=== PATIENT | female | born 1960 | race Caucasian/White ===

== ENCOUNTER 2023-06-17 10:57 | Outpatient (REF) | payer OTHER, SELFPAY ==
[2023-06-17 11:18] LABS: Basophils Absolute Auto 0.1 X10*3/uL (0.0-0.2); Basophils Percent Auto 0.9 % (0-2); Eosinophils Absolute Auto 0.2 X10*3/uL (0.0-0.4); Eosinophils Percent Auto 3.3 % (0-4); Hematocrit 50.9 % (37.0-47.0); Hemoglobin 18.1 g/dl (12.0-16.0); Imm Gran Abs Auto 0.03 X10*3/uL (0.00-0.03); Imm Gran Pct Auto 0.4 % (0.0-0.4); Lymphocytes Absolute Auto 1.8 X10*3/uL (1.2-4.9); MANUAL DIFF FLAG NO; Mean Corpuscular HGB Conc 35.6 g/dl (31.0-35.0); Mean Corpuscular Volume 95.5 fL (80.0-98.0); Mean Platelet Volume 8.3 fL (9.4-12.3); Monocytes Absolute Auto 0.8 X10*3/uL (0.1-1.2); Monocytes Percent Auto 11.3 % (2-11); Neutrophils Percent Auto 58.1 % (45-73); Platelet Count 239 X10*3/uL (160-400); Red Blood Count 5.33 X10*6/uL (4.20-5.50); Red Cell Distribution Width 11.9 % (11.0-16.0); White Blood Count 6.9 X10*3/uL (4.8-10.8)
== END 2023-06-17 10:58 | disposition home or self-care (01) ==
LOC: HO.BBR 10:57
PROVIDERS: PCP Family Medicine; Visit Provider Internal Medicine Hematology & Oncology
DX: D75.1 Secondary polycythemia (principal)
CPT/HCPCS: 36415; 85025; 99195

== ENCOUNTER 2023-07-05 09:58 | Outpatient (REF) | payer OTHER, SELFPAY ==
[2023-07-05 10:13] LABS: MANUAL DIFF FLAG NO
[2023-07-05 10:14] LABS: Basophils Percent Auto 0.5 % (0-2); Eosinophils Absolute Auto 0.3 X10*3/uL (0.0-0.4); Eosinophils Percent Auto 4.2 % (0-4); Hematocrit 53.3 % (37.0-47.0); Hemoglobin 18.6 g/dl (12.0-16.0); Imm Gran Abs Auto 0.01 X10*3/uL (0.00-0.03); Imm Gran Pct Auto 0.2 % (0.0-0.4); Lymphocytes Absolute Auto 1.9 X10*3/uL (1.2-4.9); Lymphocytes Percent Auto 31.2 % (20-40); Mean Corpuscular HGB Conc 34.9 g/dl (31.0-35.0); Mean Corpuscular Hemoglobin 33.6 pg (27.0-33.0); Mean Corpuscular Volume 96.2 fL (80.0-98.0); Mean Platelet Volume 8.2 fL (9.4-12.3); Monocytes Absolute Auto 0.7 X10*3/uL (0.1-1.2); Monocytes Percent Auto 11.7 % (2-11); Neutrophils Absolute Auto 3.1 x10*3/uL (2.0-8.3); Neutrophils Percent Auto 52.2 % (45-73); Platelet Count 256 X10*3/uL (160-400); Red Blood Count 5.54 X10*6/uL (4.20-5.50); Red Cell Distribution Width 12.2 % (11.0-16.0)
== END 2023-07-05 09:59 | disposition home or self-care (01) ==
LOC: HO.BBR 09:58
PROVIDERS: PCP Family Medicine; Visit Provider Internal Medicine Hematology & Oncology
DX: D75.1 Secondary polycythemia (principal)
CPT/HCPCS: 36415; 85014; 85018; 85025; 99195

== ENCOUNTER 2023-07-23 09:13 | Outpatient (REF) | payer OTHER, SELFPAY ==
[2023-07-23 09:40] LABS: MANUAL DIFF FLAG NO
[2023-07-23 09:42] LABS: Basophils Absolute Auto 0.1 X10*3/uL (0.0-0.2); Basophils Percent Auto 0.7 % (0-2); Eosinophils Absolute Auto 0.2 X10*3/uL (0.0-0.4); Hematocrit 49.6 % (37.0-47.0); Hemoglobin 17.8 g/dl (12.0-16.0); Imm Gran Abs Auto 0.03 X10*3/uL (0.00-0.03); Imm Gran Pct Auto 0.4 % (0.0-0.4); Lymphocytes Absolute Auto 1.9 X10*3/uL (1.2-4.9); Lymphocytes Percent Auto 27.5 % (20-40); Mean Corpuscular HGB Conc 35.9 g/dl (31.0-35.0); Mean Corpuscular Hemoglobin 34.8 pg (27.0-33.0); Mean Corpuscular Volume 96.9 fL (80.0-98.0); Monocytes Absolute Auto 0.7 X10*3/uL (0.1-1.2); Monocytes Percent Auto 10.6 % (2-11); Neutrophils Percent Auto 57.8 % (45-73); Platelet Count 256 X10*3/uL (160-400); Red Blood Count 5.12 X10*6/uL (4.20-5.50); Red Cell Distribution Width 12.4 % (11.0-16.0)
== END 2023-07-23 09:14 | disposition home or self-care (01) ==
LOC: HO.BBR 09:13
PROVIDERS: PCP Family Medicine; Visit Provider Internal Medicine Hematology & Oncology
DX: D75.1 Secondary polycythemia (principal)
CPT/HCPCS: 36415; 85025; 99195

== ENCOUNTER 2023-08-26 10:06 | Outpatient (REF) | payer OTHER, SELFPAY | END 2023-08-26 10:07 | disposition home or self-care (01) | LOC: HO.BBR 10:06 | PROVIDERS: PCP Family Medicine; Visit Provider Internal Medicine Hematology & Oncology | DX: D75.1 Secondary polycythemia (principal) | CPT/HCPCS: 85014; 85018; 99195 ==

== ENCOUNTER 2023-09-30 10:04 | Outpatient (REF) | payer OTHER, SELFPAY | END 2023-09-30 10:05 | disposition home or self-care (01) | LOC: HO.BBR 10:04 | PROVIDERS: PCP Family Medicine; Visit Provider Internal Medicine Hematology & Oncology | DX: D75.1 Secondary polycythemia (principal) | CPT/HCPCS: 85018; 99195 ==

== ENCOUNTER 2023-11-01 09:56 | Outpatient (REF) | payer OTHER, SELFPAY ==
[2023-11-01 10:14] LABS: MANUAL DIFF FLAG NO
[2023-11-01 10:21] LABS: Basophils Absolute Auto 0.1 X10*3/uL (0.0-0.2); Eosinophils Absolute Auto 0.2 X10*3/uL (0.0-0.4); Eosinophils Percent Auto 2.6 % (0-4); Hematocrit 48.9 % (37.0-47.0); Hemoglobin 17.4 g/dl (12.0-16.0); Imm Gran Abs Auto 0.01 X10*3/uL (0.00-0.03); Imm Gran Pct Auto 0.2 % (0.0-0.4); Lymphocytes Absolute Auto 1.6 X10*3/uL (1.2-4.9); Lymphocytes Percent Auto 27.6 % (20-40); Mean Corpuscular HGB Conc 35.6 g/dl (31.0-35.0); Mean Corpuscular Hemoglobin 33.2 pg (27.0-33.0); Mean Corpuscular Volume 93.3 fL (80.0-98.0); Mean Platelet Volume 8.3 fL (9.4-12.3); Monocytes Absolute Auto 0.9 X10*3/uL (0.1-1.2); Monocytes Percent Auto 14.6 % (2-11); Neutrophils Absolute Auto 3.2 x10*3/uL (2.0-8.3); Platelet Count 245 X10*3/uL (160-400); Red Blood Count 5.24 X10*6/uL (4.20-5.50); Red Cell Distribution Width 12.1 % (11.0-16.0); White Blood Count 5.9 X10*3/uL (4.8-10.8)
== END 2023-11-01 09:57 | disposition home or self-care (01) ==
LOC: HO.BBR 09:56
PROVIDERS: PCP Family Medicine; Visit Provider Internal Medicine Hematology & Oncology
DX: D75.1 Secondary polycythemia (principal)
CPT/HCPCS: 36415; 85018; 85025; 99195

== ENCOUNTER 2023-12-06 08:58 | Outpatient (REF) | payer OTHER, SELFPAY | END 2023-12-06 08:59 | disposition home or self-care (01) | LOC: HO.BBR 08:58 | PROVIDERS: PCP Family Medicine; Visit Provider Internal Medicine Hematology & Oncology | DX: D75.1 Secondary polycythemia (principal) | CPT/HCPCS: 85014; 85018; 99195 ==

== ENCOUNTER 2024-01-10 09:03 | Outpatient (REF) | payer OTHER, SELFPAY | END 2024-01-10 09:04 | disposition home or self-care (01) | LOC: HO.BBR 09:03 | PROVIDERS: PCP Family Medicine; Visit Provider Internal Medicine Hematology & Oncology | DX: D75.1 Secondary polycythemia (principal) | CPT/HCPCS: 85014; 85018; 99195 ==

== ENCOUNTER 2024-02-10 09:04 | Outpatient (REF) | payer OTHER, SELFPAY | END 2024-02-10 09:05 | disposition home or self-care (01) | LOC: HO.BBR 09:04 | PROVIDERS: PCP Family Medicine; Visit Provider Internal Medicine Hematology & Oncology | DX: D75.1 Secondary polycythemia (principal) | CPT/HCPCS: 85018; 99195 ==

== ENCOUNTER 2024-03-23 10:02 | Outpatient (REF) | payer OTHER, SELFPAY | END 2024-03-23 10:03 | disposition home or self-care (01) | LOC: HO.BBR 10:02 | PROVIDERS: PCP Family Medicine; Visit Provider Internal Medicine Hematology & Oncology | DX: D75.1 Secondary polycythemia (principal) | CPT/HCPCS: 85018; 99195 ==

== ENCOUNTER 2024-04-24 08:58 | Outpatient (REF) | payer OTHER, SELFPAY ==
--- OUTSIDE RECORDS SUMMARY | 2024-04-24 09:17 | XMS_ITS | Data Portability ---
Author Organization [facility] Brayan Conrad, [facility] Address [address] [place] [address] Care Team Providers Care Port Crane Operator Name Role Phone EMILIANO MARCANO Primary Care Provider EMILIANO MARCANO Referring Provider Assessment Encounter Date Assessment Date Assessment LastModified by Organization Details LastModified Time 06/07/2017 06/07/2017 I have prescribe d a course of fluconazole as well as nystatin swish and swallow. she will discuss temporarily stopping the Advair with her primary care physician. She will follow up in 2 weeks for reevaluation, sooner if needed. Not available 06/07/2017 14:42:31 06/13/2017 06/13/2017 fungal laryngiti s, improved. Continue fluconazole, nystatin for total 2 week course. She will f/u 10 days, sooner prn Not available 06/14/2017 12:56:29 06/28/2017 06/28/2017 one more week of fluconazole. If remaining lesion does not completely resolve biopsy may be warranted. astepro in addition to flonase for allergic rhinitis. f/u 2 - 3 weeks, sooner prn. May also be interested in cosmetic botox at that time. Not available 06/28/2017 17:23:19 07/15/2017 07/15/2017 fungal laryngiti s improved, still with plaque/leukoplakia of right true cord. + tobacco user, professional schwartz. we have discussed options including microlaryngoscopy with biopsy versus laryngology consult; she would like to proceed with layngology consult. She is welcome to f/u prn. Not available 07/16/2017 09:05:37 08/09/2017 08/09/2017 Will f/u with Dr Canas as scheduled for further evaluation. She is welcome to f/u with me prn. Not available 08/09/2017 10:29:28 Plan of Treatment Reminders Order Date Submit Date Provider Last Modified By Organization Details Last Modified Time Details Appointments None recorded. Lab None recorded. Referral None recorded. Procedures None recorded. Surgeries None recorded. Imaging None recorded. Medication Orders nystatin 100,000 unit/mL oral suspension 2017 018 INTERFACE [facility] #1531, [address] [place], [address], 8 14:44:16 fluconazol e 100 mg tablet 2017 018 INTERFACE [facility] #1531, [address] [place], [address], 8 14:44:16 fluconazol e 100 mg tablet 2017 018 INTERFACE [facility] #1531, [address] [place], [address], 8 13:32:18 nystatin 100,000 unit/mL oral suspension 2017 018 INTERFACE [facility] #1531, [address] [place], [address], 8 13:32:17 fluconazol e 100 mg tablet 2017 018 INTERFACE [facility] #1531, [address] [place], [address], 8 10:13:46 Astepro 205.5 mcg (0.15 %) nasal spray 2017 018 INTERFACE [facility] #1531, [address] [place], [address], 8 10:03:01 Patient TargetsNo targets recorded. Patient InstructionsNo instructions recorded. Reason for Referral None Reported. Problems Name Problem SNOMED Code Status Onset Date Resolution Date Notes Provider Name and Address Organization Details Recorded Time Chronic fungal laryngitis 558530663 Active 2017 Brea Ugalde MD [address] [place] [address], [place], [address], [facility] 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 8 09:04:47 Problem Notes None recorded. Procedures Surgical History Date Name Laterality Status Provider Name and Address Organization Details Recorded Time 8 Videostrobe 1 completed Brea Ugalde MD [address] [place] [address], [place], [address], [facility] 08/09/2017 10:28:21 8 Videostrobe 1 completed Brea Ugalde MD [address] [place] [address], [place], [address], [facility] 07/15/2017 13:55:39 8 Videostrobe 1 completed Brea Ugalde MD [address] [place] [address], [place], [address], [facility] 06/28/2017 10:12:22 8 Videostrobe 1 completed Brea Ugalde MD [address] [place] [address], [place], [address], [facility] 06/13/2017 13:33:29 8 Exam of Ear Under Microscopy - Cerumen Removal completed Brea Ugalde MD [address] [place] [address], [place], [address], [facility] 06/07/2017 14:40:34 8 Videostrobe 1 meredith Ugalde MD [address] [place] [address], [place], [address], [facility] 06/07/2017 14:41:43 Imaging Results None recorded. Procedure Notes None recorded. Medical Equipment None Reported. Allergies No known drug allergies Medications Name Sig Start Date Stop Date Status Note LastModified by Organization Details LastModified Time fluconazole 100 mg tablet Take 1 tablet every day by oral route for 7 days. active Not Available Not Available No t Available nystatin 100,000 unit/mL oral suspension 5 cc swish and swallow three times daily x 4 days active Not Available Not Available No t Available prednisone 10 mg tablet active Not Available Not Available No t Available albuterol sulfate 2.5 mg/3 mL (0.083 %) solution for nebulization active Not Available Not Available Not Available cetirizine 10 mg tablet active Not Available Not Available No t Available azithromycin 250 mg tablet active Not Available Not Availabl e Not Available cephalexin 250 mg capsule active Not Available Not Available N ot Available ciprofloxacin 500 mg tablet active Not Available Not Availabl e Not Available levothyroxine 100 mcg tablet active Not Available Not Availab le Not Available oxycodone-aceta minophen 5 mg-325 mg tablet active Not Available Not Available Not Available Advair Diskus 250 mcg-50 mcg/dose powder for inhalation active Not Available Not Availab le Not Available sertraline 25 mg tablet active Not Available Not Available No t Available diazepam 5 mg tablet active Not Available Not Available Not Available Ventolin HFA 90 mcg/actuation aerosol inhaler active Not Available Not Availa ble Not Available bupropion HCl SR 200 mg tablet,12 hr sustained-relea se active Not Available Not Available Not Available rosuvastatin 10 mg tablet active Not Available Not Available No t Available Spiriva with HandiHaler 18 mcg and inhalation capsules active Not Available Not Available Not Available azelastine 205.5 mcg (0.15 %) nasal spray 2 sprays per nostril daily active Not Available Not Available No t Available Flonase Allergy Relief active Not Available Not Available Not Available Vitals Date Recorded Body height Body mass index (BMI) Body weight Provider Name and Address Organization Details Last Updated DateTime 06/07/2017 170.18 cm 23.5 kg/m2 12121.86 g Kaylan Padron [facility] 06/07/2017 14:10:36 Social History Question Answer Notes LastModified by Organizat ion Details LastModified Time Tobacco Smoking Status Current Every Day Smoker RANI Richards [facility] 06/07/2017 14:10:59 Alcohol Use Social Information n ot available 06/07/2017 History Of Noise Exposure No Information not available 06/07/2017 What Was The Date Of Your Most Recent Tobacco Screening? 08/09/2017 Information n ot available 2018 Sex: Unknown Functional Status None recorded. Mental Status None recorded. Family History Relationship Description Onset Age of this Age Resolved Age Notes LastModified by Organization Details LastModified Time Father No current problems or disability Not available 06/07 15:39:54 Mother No current problems or disability Not available 06/07 15:39:54 Medical History Condition Response Diabetes N Heart Disease N Asthma/COPD Y Hypertension N Gynecological HistoryNo gynecological history recorded. Obstetrics History GPAL:G 0 P 0 0 0 0 Past Encounters Encounter ID Performer Location Encounter Start Date Encounter Closed Date Diagnosis/Indication Diagnosis SNOMED-CT Code Diagnosis ICD10 Code Diagnosis Note [id number] Brea Ugalde MD [address] [place] [address] 06/07/2017 13:59:07 06/11/2017 14:50:19 Chronic fungal laryngitis 247565473 J37.0 Impacted c erumen in right ear 0855194721 266134 H61.21 [id number] Brea Ugalde MD [address] [place] [address] 06/13/2017 13:00:30 06/14/2017 15:30:36 Chronic fungal laryngitis 738471529 J37.0 [id number] Brea Ugalde MD [address] [place] [address] 06/28/2017 09:44:59 07/09/2017 16:07:25 Chronic fungal laryngitis 825141839 J37.0 Allergic r hinitis caused by pollen 02299514 J30.1 [id number] Brea Ugalde MD [address] [place] [address] 07/15/2017 13:13:44 07/26/2017 10:44:01 Chronic fungal laryngitis 537984968 J37.0 Leukoplaki a of vocal cords 02835830 J38.3 [id number] Brea Ugalde MD [facility] [address] [place] [address] 08/09/2017 10:15:39 08/15/2017 10:38:48 Chronic fungal laryngitis 215742259 J37.0 Leukoplaki a of vocal cords 48384955 J38.3 Health Concerns Section Related Observation LastModified by Organization Detai ls LastModified Time None Recorded Concern Status LastModified by Organization Details LastModified Time None Recorded Advance Directives Directive None Recorded Payers Encounter Date Sequence Insurance Name Policy Number Policy Roth Covered Member ID Roth Member ID Guarantor Name 06/07/2017 1 [facility] INDEMNITY PLAN - [employer] [id number] 5 Nathalie F Winkler-C arey [id number] Nathalie F Ford-Urban 06/13/2017 1 [facility] [employer]AN - [employer] [id number] 5 Nathalie F Winkler-C arey [id number] Nathalie F Ford-Urban 06/28/2017 1 [facility] [employer]AN - [employer] [id number] 5 Nathalie F Winkler-C arey [id number] Nathalie F Ford-Urban 07/15/2017 1 [facility] [employer]AN - [employer] [id number] 5 Nathalie F Winkler-C arey [id number] Nathalie F Ford-Urban 08/09/2017 1 [facility] [employer]AN - [employer] [id number] 5 Nathalie F Winkler-C arey [id number] Nathalie F Ford-Urban Notes Date Note Type Note Provider Name and Address Organization Details Recorded Time 06/07/2017 text/html Seen in consultation at the request of Dr. Marcano. 56 yo F with Laryngitis x 2 months. Went to urgent care, treated with prednisone and abx, no improvement. Schwartz. Started off with mild sore throat, suspects overuse may have worsened her symptoms. Does report mild allergic rhinitis, recent exacerbation with watery eyes, rhinorrhea. Restarted flonase recently, no change. No pain in throat currently. No difficulty swallowing. Does have asthma, uses advair prn; has been using more recently as the asthma has worsened since she started smoking again. Brea Ugalde MD [address] [facility] [facility] [address] , [place], [address], [facility] 06/07/2017 15:42:10 06/13/2017 text/html Seen 6 days ago with hoarseness, fungal laryngitis. Moved up her f/u appointment and returns today for re-evaluation; No worse, but wants to be better. Started on antifungals 6 days ago. No longer taking advair. 06/07: Seen in consultation at the request of Dr. Marcano. 56 yo F with Laryngitis x 2 months. Went to urgent care, treated with prednisone and abx, no improvement. Schwartz. Started off with mild sore throat, suspects overuse may have worsened her symptoms. Does report mild allergic rhinitis, recent exacerbation with watery eyes, rhinorrhea. Restarted flonase recently, no change. No pain in throat currently. No difficulty swallowing. Does have asthma, uses advair prn; has been using more recently as the asthma has worsened since she started smoking again. Brea Ugalde MD [address] [facility] [facility] [address] , [place], [address], [facility] 06/14/2017 13:01:29 06/28/2017 text/html Now with symptom s of allergic rhinitis, nasal congestion/rhinorr hea. No pain in throat. Singing voice improved. 06/13 Seen 6 days ago with hoarseness, fungal laryngitis. Moved up her f/u appointment and returns today for re-evaluation; No worse, but wants to be better. Started on antifungals 6 days ago. No longer taking advair. 06/07: Seen in consultation at the request of Dr. Marcano. 56 yo F with Laryngitis x 2 months. Went to urgent care, treated with prednisone and abx, no improvement. Schwartz. Started off with mild sore throat, suspects overuse may have worsened her symptoms. Does report mild allergic rhinitis, recent exacerbation with watery eyes, rhinorrhea. Restarted flonase recently, no change. No pain in throat currently. No difficulty swallowing. Does have asthma, uses advair prn; has been using more recently as the asthma has worsened since she started smoking again. Brea Ugalde MD [address] [facility], [place], [address], [facility] 06/28/2017 17:23:44 07/15/2017 text/html Returns today fo r f/u. voice has improved, not quite but almost back to normal. Allergies better controlled on astepro/flonase daily. No throat pain, no dysphagia or odyophagia. does continue to smoke. 06/28: Now with symptoms of allergic rhinitis, nasal congestion/rhinorr hea. No pain in throat. Singing voice improved. 06/13 Seen 6 days ago with hoarseness, fungal laryngitis. Moved up her f/u appointment and returns today for re-evaluation; No worse, but wants to be better. Started on antifungals 6 days ago. No longer taking advair. 06/07: Seen in consultation at the request of Dr. Marcano. 56 yo F with Laryngitis x 2 months. Went to urgent care, treated with prednisone and abx, no improvement. Schwartz. Started off with mild sore throat, suspects overuse may have worsened her symptoms. Does report mild allergic rhinitis, recent exacerbation with watery eyes, rhinorrhea. Restarted flonase recently, no change. No pain in throat currently. No difficulty swallowing. Does have asthma, uses advair prn; has been using more recently as the asthma has worsened since she started smoking again. Brea Ugalde MD [address] [place], [address], [facility] 07/16/2017 09:08:03 08/09/2017 text/html returns today fo r followup. Voice continues to improve. No throat pain, no dysphagia or odynophagia. Does continue to smoke. Scheduled to see Dr. Canas next month. 07/15: Returns today for f/u. voice has improved, not quite but almost back to normal. Allergies better controlled on astepro/flonase daily. No throat pain, no dysphagia or odyophagia. does continue to smoke. 06/28: Now with symptoms of allergic rhinitis, nasal congestion/rhinorr hea. No pain in throat. Singing voice improved. 06/13 Seen 6 days ago with hoarseness, fungal laryngitis. Moved up her f/u appointment and returns today for re-evaluation; No worse, but wants to be better. Started on antifungals 6 days ago. No longer taking advair. 06/07: Seen in consultation at the request of Dr. Marcano. 56 yo F with Laryngitis x 2 months. Went to urgent care, treated with prednisone and abx, no improvement. Schwartz. Started off with mild sore throat, suspects overuse may have worsened her symptoms. Does report mild allergic rhinitis, recent exacerbation with watery eyes, rhinorrhea. Restarted flonase recently, no change. No pain in throat currently. No difficulty swallowing. Does have asthma, uses advair prn; has been using more recently as the asthma has worsened since she started smoking again. Brea Ugalde MD [address] [place] [address], [place], [address], [facility] 08/09/2017 10:30:17 OBGyn Episode No OBEpisode recorded.
== END 2024-04-24 08:59 | disposition home or self-care (01) ==
LOC: HO.BBR 08:58
PROVIDERS: PCP Family Medicine; Visit Provider Internal Medicine Hematology & Oncology
DX: D75.1 Secondary polycythemia (principal)

== ENCOUNTER 2024-05-25 09:09 | Outpatient (REF) | payer OTHER, SELFPAY ==
--- OUTSIDE RECORDS SUMMARY | 2024-05-25 09:43 | XMS_ITS | Data Portability ---
Author Organization [facility] Brayan Conrad, [facility] Address [address] [place] [address] Care Team Providers Care Director Of Customer Service Name Role Phone EMILIANO MARCANO Primary Care [...] evaluation. She is welcome to f/u with prn. Not available 08/09/2017 10:29:28 Plan of Treatment Reminders Order Date Submit Date Provider Last Modified By Organization Details Last Modified Time Details Appointments None recorded. Lab None recorded. Referral None recorded. Procedures None recorded. Surgeries None recorded. Imaging None recorded. Medication Orders fluconazol e 100 mg tablet 2017 018 INTERFACE [facility], [address] [place], [address], 8 10:13:46 Astepro 205.5 mcg (0.15 %) nasal spray 2017 018 INTERFACE [facility] #1531, [address] [place], [address], 8 10:03:01 fluconazol e 100 mg tablet 2017 018 INTERFACE [facility], [address] [place], [address], 8 13:32:18 nystatin 100,000 unit/mL oral suspension 2017 018 INTERFACE [facility] #1531, [address] [place], [address], 8 13:32:17 nystatin 100,000 unit/mL oral suspension 2017 018 INTERFACE [facility], [address] [place], [address], 8 14:44:16 fluconazol e 100 mg tablet 2017 018 INTERFACE [facility], [address] [place], [address], 8 14:44:16 Patient TargetsNo targets recorded. Patient InstructionsNo instructions recorded. Reason for Referral None Reported. Problems Name Problem SNOMED Code Status Onset Date Resolution Date Notes Provider Name and Address Organization Details Recorded Time Chronic fungal laryngitis 365464587 Active 2017 Brea Ugalde MD [address] [place] [address], [place], [address], [facility] 8 13:31:40 Leukoplakia of vocal cords 02475553 Active 2017 Brea Ugalde MD [address] [place] [address], [place], [address], [facility] 8 09:04:47 Problem Notes None recorded. Procedures Surgical History Date Name Laterality Status Provider Name and Address Organization Details Recorded Time 8 Videostrobe 1 completed Brea Ugalde MD [address] [place] [address], [place], [address], [facility] 08/09/2017 10:28:21 8 Videostrobe 1 completed Brea Ugalde MD [address] [place] [address], [place], [address], [facility] 07/15/2017 13:55:39 8 Videostrobe 1 completed Brea Ugalde MD [address] [place] [address], [place], [address], [facility] 06/28/2017 10:12:22 8 Videostrobe 1 completed Brea Ugalde MD [address] [place] [address], [place], [address], [facility] 06/13/2017 13:33:29 8 Exam of Ear Under Microscopy - Cerumen Removal completed Brea Ugalde MD [address] [place] [address], [place], [address], [facility] 06/07/2017 14:40:34 8 Videostrobe 1 merdeith Ugalde MD [address] [place] [address], [place], [address], [facility] 06/07/2017 14:41:43 Imaging Results [...] Updated DateTime 06/07/2017 170.18 cm 23.5 kg/m2 44679.86 g Kaylan Padron [facility] 06/07/2017 14:10:36 Social History Question Answer Notes LastModified by Organizat ion Details LastModified Time Tobacco Smoking Status Current Every Day Smoker RANI Richards [facility] 06/07/2017 14:10:59 Alcohol Use [...] 15:39:54 Medical History Condition Response Diabetes N Asthma/COPD Y Heart Disease N Hypertension N Gynecological HistoryNo gynecological history recorded. Obstetrics History GPAL:G 0 P 0 0 0 0 Past Encounters Encounter ID Performer Location Encounter Start Date Encounter Closed Date Diagnosis/Indication Diagnosis SNOMED-CT Code Diagnosis ICD10 Code Diagnosis Note [id number] Brea Ugalde MD [address] [place] [address] 06/07/2017 13:59:07 06/11/2017 14:50:19 Chronic fungal laryngitis 081939054 J37.0 Impacted c erumen in right ear 9280041114 927775 H61.21 [id number] Brea Ugalde MD [address] [place] [address] 06/13/2017 13:00:30 06/14/2017 15:30:36 Chronic fungal laryngitis 631582989 J37.0 [id number] rBea Ugalde MD [address] [place] [address] 06/28/2017 09:44:59 07/09/2017 16:07:25 Chronic fungal laryngitis 249337069 J37.0 Allergic r hinitis caused by pollen 22063652 J30.1 [id number] Brea Ugalde MD [address] [place] [address] 07/15/2017 13:13:44 07/26/2017 10:44:01 Chronic fungal laryngitis 222665950 J37.0 Leukoplaki a of vocal cords 24592578 J38.3 [id number] Brea Uaglde MD [facility] [address] [place] [address] 08/09/2017 10:15:39 08/15/2017 10:38:48 Chronic fungal laryngitis 213840874 J37.0 Leukoplaki a of vocal cords 78880911 J38.3 Health Concerns Section Related Observation LastModified by Organization Detai ls LastModified Time None Recorded Concern Status LastModified by Organization Details LastModified Time None Recorded Advance Directives Directive None Recorded Payers Encounter Date Sequence Insurance Name Policy Number Policy Roth Covered Member ID Roth Member ID Guarantor Name 06/07/2017 1 [facility] INDEMNITY PLAN - [employer] [id number] 5 Nathalie F Wilson-C arey [id number] Nathalie F Ford-Urban 06/13/2017 1 [facility] [employer] - [employer] [id number] 5 Nathalie F Wilson-C arey [id number] Nathalie F Ford-Urban 06/28/2017 1 [facility] [employer] - [employer] [id number] 5 Nathalie F Wilson-C arey [id number] Nathalie F Ford-Urban 07/15/2017 1 [facility] [employer] - [employer] [id number] 5 Nathalie F Wilson-C arey [id number] Nathalie F Ford-Urban 08/09/2017 1 [facility] [employer] - [employer] [id number] 5 Nathalie F Wilson-C arey [id number] Nathalie F Ford-Urban Notes Date Note Type [...] started smoking again. Brea Ugalde MD [address] [facility] [address] , [place], [address], [facility] 06/07/2017 15:42:10 06/13/2017 text/html [...] started smoking again. Brea Ugalde MD [address] [facility] [address] , [place], [address], [facility] 06/14/2017 13:01:29 06/28/2017 text/html [...] started smoking again. Brea Ugalde MD [address] [facility], [place], [address], [facility] 06/28/2017 17:23:44 07/15/2017 text/html [...] started smoking again. Brea Ugalde MD [address] [place], [address], [facility] 07/16/2017 09:08:03 08/09/2017 text/html [...] she started smoking again. Brea Ugalde MD [address] [place] [address], [place], [address], [facility] 08/09/2017 10:30:17 OBGyn Episode No OBEpisode recorded.
== END 2024-05-25 09:10 | disposition home or self-care (01) ==
LOC: HO.BBR 09:09
PROVIDERS: PCP Family Medicine; Visit Provider Internal Medicine Hematology & Oncology
DX: D75.1 Secondary polycythemia (principal)
CPT/HCPCS: 85018; 99195

== ENCOUNTER 2024-06-22 09:00 | Outpatient (REF) | payer OTHER, SELFPAY | END 2024-06-22 09:01 | disposition home or self-care (01) | LOC: HO.BBR 09:00 | PROVIDERS: PCP Family Medicine; Visit Provider Internal Medicine Hematology & Oncology | DX: D75.1 Secondary polycythemia (principal) | CPT/HCPCS: 85014; 85018; 99195 ==

== ENCOUNTER 2024-07-20 10:55 | Outpatient (REF) | payer OTHER, SELFPAY ==
--- OUTSIDE RECORDS SUMMARY | 2024-07-20 12:34 | XMS_ITS | Data Portability ---
Author Organization [facility] Brayan Conrad, [facility] Address [address] [place] [address] Care Team Providers Care Employee Counselor Name Role Phone EMILIANO MARCANO Primary Care [...] tablet 2017 018 [facility]FACE [facility], [address] [place], [address], 8 10:13:46 Astepro 205.5 mcg (0.15 %) nasal spray 2017 018 INTERFACE [facility], [address] [place], [address], 8 10:03:01 fluconazol e 100 mg tablet 2017 018 [facility], [address] [place], [address], 8 13:32:18 nystatin 100,000 unit/mL oral suspension 2017 018 INTERFACE [facility], [address] [place], [address], 8 13:32:17 nystatin 100,000 unit/mL oral suspension 2017 018 [facility], [address] [place], [address], 8 14:44:16 fluconazol e 100 mg tablet 2017 018 [facility], [address] [place], [address], 8 14:44:16 Patient TargetsNo targets recorded. Patient InstructionsNo instructions recorded. Reason for Referral None Reported. Problems Name Problem SNOMED Code Status Onset Date Resolution Date Notes Provider Name and Address Organization Details Recorded Time Chronic fungal laryngitis 638850464 Active 2017 Brea Ugalde MD [address] [place] [address], [place], [address], [facility] 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 8 09:04:47 Problem Notes None recorded. Procedures Surgical History Date Name Laterality Status Provider Name and Address Organization Details Recorded Time 8 Videostrobe 1 completed Brea Ugalde MD [address] [place] [address], [place], [address], [facility] 08/09/2017 10:28:21 8 Videostrobe 1 completed Brea Ugalde MD [address] [place] [address], [place], [address], [facility] 07/15/2017 13:55:39 8 Videostrobe 1 completed Brea Ugalde MD [address] [place] [address], [place], [address], [facility] 06/28/2017 10:12:22 8 Videostrobe 1 completed Brea Ugalde MD [address] [place] [address], [place], [address], [facility] 06/13/2017 13:33:29 8 Exam of Ear Under Microscopy - Cerumen Removal completed Brea Ugalde MD [address] [place] [address], [place], [address], [facility] 06/07/2017 14:40:34 8 Videostrobe 1 meredith Ugalde MD [address] [place] [address], [place], [address], [facility] 06/07/2017 14:41:43 Imaging [...] Updated DateTime 06/07/2017 170.18 cm 23.5 kg/m2 34530.86 g Kaylan Padron [facility] 06/07/2017 14:10:36 Social History Question Answer Notes LastModified by Organizat ion Details LastModified Time Tobacco Smoking Status Current Every Day Smoker RANI Richards [facility] 06/07/2017 14:10:59 Alcohol Use [...] SNOMED-CT Code Diagnosis ICD10 Code Diagnosis Note [id number] Brea Ugalde MD [address] [place] [address] 06/07/2017 13:59:07 06/11/2017 14:50:19 Chronic fungal laryngitis 677409017 J37.0 Impacted c erumen in right ear 1563015972 521656 H61.21 43342 Brea Ugalde MD [address] [place] [address] 06/13/2017 13:00:30 06/14/2017 15:30:36 Chronic fungal laryngitis 840506170 J37.0 72522 Brea Ugalde MD [address] [place] [address] 06/28/2017 09:44:59 07/09/2017 16:07:25 Chronic fungal laryngitis 873880238 J37.0 Allergic r hinitis caused by pollen 48748759 J30.1 48925 Brea Ugalde MD [address] [place] [address] 07/15/2017 13:13:44 07/26/2017 10:44:01 Chronic fungal laryngitis 046147710 J37.0 Leukoplaki a of vocal cords 15181065 J38.3 61687 Brea Ugalde MD [facility] [address] [place] [address] 08/09/2017 10:15:39 08/15/2017 10:38:48 Chronic fungal laryngitis 170870876 J37.0 Leukoplaki a of vocal cords 16256579 J38.3 Health Concerns Section Related Observation LastModified by Organization Detai ls LastModified Time None Recorded Concern Status LastModified by Organization Details LastModified Time None Recorded Advance Directives Directive None Recorded Payers Encounter Date Sequence Insurance Name Policy Number Policy Roth Covered Member ID Roth Member ID Guarantor Name 06/07/2017 1 [facility] INDEMNITY PLAN - [employer] [id number] 5 Nathalie F Boss-C arey [id number] Nathalie F Ford-Urban 06/13/2017 1 [facility] INDEMNITY PLAN - [employer] [id number] 5 Nathalie F Boss-C arey [id number] Nathalie F Ford-Urban 06/28/2017 1 [facility] INDEMNITY PLAN - [employer] [id number] 5 Nathalie F Boss-C arey [id number] Nathalie F Ford-Urban 07/15/2017 1 [facility] INDEMNITY PLAN - [employer] [id number] 5 Nathalie F Boss-C arey [id number] Nathalie F Ford-Urban 08/09/2017 1 [facility] INDEMNITY PLAN - [employer] [id number] 5 Nathalie F Boss-C arey [id number] Nathalie F Ford-Urban Notes Date Note Type [...] started smoking again. Brea Ugalde MD [address] [facility] [address] , [place], [address], [facility] 06/07/2017 15:42:10 06/13/2017 [...] started smoking again. Brea Ugalde MD [address] [facility] [address] , [place], [address], [facility] 06/14/2017 13:01:29 06/28/2017 [...] started smoking again. Brea Ugalde MD [address] [facility], [place], [address], [facility] 06/28/2017 17:23:44 07/15/2017 [...] started smoking again. Brea Ugalde MD [address] [place], [address], [facility] 07/16/2017 09:08:03 08/09/2017 [...] she started smoking again. Brea Ugalde MD [address] [place] [address], [place], [address], [facility] - [facility] 08/09/2017 10:30:17 OBGyn Episode No OBEpisode recorded.
== END 2024-07-20 10:56 | disposition home or self-care (01) ==
LOC: HO.BBR 10:55
PROVIDERS: PCP Family Medicine; Visit Provider Internal Medicine Hematology & Oncology
DX: D75.1 Secondary polycythemia (principal)
CPT/HCPCS: 85018; 99195

== ENCOUNTER 2024-08-17 10:59 | Outpatient (REF) | payer OTHER, SELFPAY ==
--- OUTSIDE RECORDS SUMMARY | 2024-08-17 12:13 | XMS_ITS | Data Portability ---
Author Organization [facility] Brayan Conrad, [facility] Address [address] [place] [address] Care Team Providers Care Construction Estimator Name Role Phone EMILIANO MARCANO Primary Care Provider [phone] EMILIANO MARCANO Referring Provider Assessment Encounter Date [...] tablet 2017 018 [facility], [address] [place], [address], 8 10:13:46 Astepro 205.5 mcg (0.15 %) nasal spray 2017 018 INTERFACE [facility], [address] [place], [address], 8 10:03:01 fluconazol e 100 mg tablet 2017 018 [facility]FACE [facility], [address] [place], [address], 8 13:32:18 nystatin 100,000 unit/mL oral suspension 2017 018 INTERFACE [facility], [address] [place], [address], 8 13:32:17 nystatin 100,000 unit/mL oral suspension 2017 018 [facility], [address] [place], [address], 8 14:44:16 fluconazol e 100 mg tablet 2017 018 [facility], [address] [place], [address], 8 14:44:16 Patient TargetsNo targets recorded. Patient InstructionsNo instructions recorded. Reason for Referral None Reported. Problems Name Problem SNOMED Code Status Onset Date Resolution Date Notes Provider Name and Address Organization Details Recorded Time Chronic fungal laryngitis 093443243 Active 2017 Brea Ugalde MD [address] [place] [address], [place], [address], [facility] 8 13:31:40 Leukoplakia of vocal cords 11591717 Active 2017 Brea Ugalde MD [address] [place] [address], [place], [address], [facility] 8 09:04:47 Problem Notes None recorded. Procedures Surgical History Date Name Laterality Status Provider Name and Address Organization Details Recorded Time 8 Videostrobe 1 completed Brea Ugalde MD [address] [place] [address], [place], [address], [facility] 08/09/2017 10:28:21 8 Videostrobe 1 completed Brea Ugalde MD [address] [place] [address], [place], [address], [facility] 07/15/2017 13:55:39 8 Videostrobe 1 completed Brea Ugalde MD [address] [place] [address], [place], [address], [facility] 06/28/2017 10:12:22 8 Videostrobe 1 completed Brea Ugalde MD [address] [place] [address], [place], [address], [facility] 06/13/2017 13:33:29 8 Exam of Ear Under Microscopy - Cerumen Removal completed Brea Ugalde MD [address] [place] [address], [place], [address], [facility] 06/07/2017 14:40:34 8 Videostrobe 1 meredith Ugalde MD [address] [place] [address], [place], [address], [facility] 06/07/2017 14:41:43 Imaging [...] Updated DateTime 06/07/2017 170.18 cm 23.5 kg/m2 67094.86 g Kaylan Padron [facility] 06/07/2017 14:10:36 Social History Question Answer Notes LastModified by Organizat ion Details LastModified Time Tobacco Smoking Status Current Every Day Smoker RANI Richards [facility] 06/07/2017 14:10:59 Alcohol Use [...] SNOMED-CT Code Diagnosis ICD10 Code Diagnosis Note 48734 Brea Ugalde MD [address] [place] [address] 06/07/2017 13:59:07 06/11/2017 14:50:19 Chronic fungal laryngitis 037626256 J37.0 Impacted c erumen in right ear 0856332950 450843 H61.21 43372 Brea Ugalde MD [address] [place] [address] 06/13/2017 13:00:30 06/14/2017 15:30:36 Chronic fungal laryngitis 496109561 J37.0 11803 Brea Ugalde MD [address] [place] [address] 06/28/2017 09:44:59 07/09/2017 16:07:25 Chronic fungal laryngitis 758437679 J37.0 Allergic r hinitis caused by pollen 13059692 J30.1 09595 Brea Ugalde MD [address] [place] [address] 07/15/2017 13:13:44 07/26/2017 10:44:01 Chronic fungal laryngitis 368022664 J37.0 Leukoplaki a of vocal cords 82701120 J38.3 73813 Brea Ugalde MD [facility] [address] [place] [address] 08/09/2017 10:15:39 08/15/2017 10:38:48 Chronic fungal laryngitis 316509516 J37.0 Leukoplaki a of vocal cords 58036558 J38.3 Health Concerns Section Related Observation LastModified by Organization Detai ls LastModified Time None Recorded Concern Status LastModified by Organization Details LastModified Time None Recorded Advance Directives Directive None Recorded Payers Encounter Date Sequence Insurance Name Policy Number Policy Roth Covered Member ID Roth Member ID Guarantor Name 06/07/2017 1 [facility] INDEMNITY PLAN - UNICARE [id number] 5 Nathalie F Bergen-C arey [id number] Nathalie F Ford-Urban 06/13/2017 1 [facility] IN[employer]MNITY [employer] - [employer] [id number] 5 Nathalie F Bergen-C arey [id number] Nathalie F Ford-Urban 06/28/2017 1 [facility] IN[employer]MNITY [employer]AN - [employer] [id number] 5 Nathalie F Bergen-C arey [id number] Nathalie F Ford-Urban 07/15/2017 1 [facility] IN[employer]MNITY PLAN - [employer] [id number] 5 Nathalie F Bergen-C arey [id number] Nathalie F Ford-Urban 08/09/2017 1 [facility] INDEMNITY PLAN - [employer] [id number] 5 Nathalie F Bergen-C arey [id number] Nathalie F Ford-Urban Notes Date Note Type [...] started smoking again. Brea Ugalde MD [address] [facility] [address] , [place], [address], [facility] 06/07/2017 15:42:10 06/13/2017 [...] started smoking again. Brea Ugalde MD [address] [facility] [address] , [place], [address], [facility] 06/14/2017 13:01:29 06/28/2017 [...] started smoking again. Brea Ugalde MD [address] [facility], [place], [address], [facility] 06/28/2017 17:23:44 07/15/2017 [...] started smoking again. Brea Ugalde MD [address] [place], [address], [facility] 07/16/2017 09:08:03 08/09/2017 [...] she started smoking again. Brea Ugalde MD [address] [place] [address], [place], [address], [facility] 08/09/2017 10:30:17 OBGyn Episode No OBEpisode recorded.
== END 2024-08-17 11:00 | disposition home or self-care (01) ==
LOC: HO.BBR 10:59
PROVIDERS: PCP Family Medicine; Visit Provider Internal Medicine Hematology & Oncology
DX: E83.110 Hereditary hemochromatosis (principal); D75.1 Secondary polycythemia
CPT/HCPCS: 85014; 85018; 99195

== ENCOUNTER 2024-09-14 11:08 | Outpatient (REF) | payer OTHER, SELFPAY ==
--- OUTSIDE RECORDS SUMMARY | 2024-09-14 12:01 | XMS_ITS | Data Portability ---
Author Organization [facility] Brayan Conrad, [facility] Address [address] [place] [address] Care Team Providers Care Percussion Welding Machine Operator Name Role Phone EMILIANO MARCANO Primary Care Provider EMILIANO MARCANO Referring Provider [phone] Assessment Encounter Date Assessment Date Assessment LastModified [...] She is welcome to f/u with me [email or web address] Not available 08/09/2017 10:29:28 Plan of Treatment Reminders Order Date Submit Date Provider Last Modified By Organization Details Last Modified Time Details Appointments None recorded. Lab None recorded. Referral None recorded. Procedures None recorded. Surgeries None recorded. Imaging None recorded. Medication Orders fluconazol e 100 mg tablet 2017 018 [facility], [address] [place], [address], 8 10:13:46 Astepro 205.5 mcg (0.15 %) nasal spray 2017 018 INTERFACE [facility], [address] [place], [address], 8 10:03:01 fluconazol e 100 mg tablet 2017 018 [facility], [address] [place], [address], 8 13:32:18 nystatin 100,000 unit/mL oral suspension 2017 018 [facility], [address] [place], [address], 8 13:32:17 nystatin 100,000 unit/mL oral suspension 2017 018 [facility], [address] [place], [address], 8 14:44:16 fluconazol e 100 mg tablet 2017 018 [facility], [address] [place], [address], 8 14:44:16 Patient TargetsNo targets recorded. Patient InstructionsNo instructions recorded. Reason for Referral None Reported. Problems Name Problem SNOMED Code Status Onset Date Resolution Date Notes Provider Name and Address Organization Details Recorded Time Chronic fungal laryngitis 813547247 Active 2017 Brea Ugalde MD [address] [place] [address], [place], [address], [facility] 8 13:31:40 Leukoplakia of vocal cords 00368015 Active 2017 Brea Ugalde MD [address] [place] [address], [place], [address], [facility] 8 09:04:47 Problem Notes None recorded. Procedures Surgical History Date Name Laterality Status Provider Name and Address Organization Details Recorded Time 8 Videostrobe 1 completed Brea Ugalde MD [address] [place] [address], [place], [address], [facility] 08/09/2017 10:28:21 8 Videostrobe 1 completed Brea Ugalde MD [address] [place] [address], [place], [address], [facility] 07/15/2017 13:55:39 8 Videostrobe 1 completed Brea Ugalde MD [address] [place] [address], [place], [address], [facility] 06/28/2017 10:12:22 8 Videostrobe 1 completed Brea Ugalde MD [address] [place] [address], [place], [address], [facility] 06/13/2017 13:33:29 8 Exam of Ear Under Microscopy - Cerumen Removal completed Brea Ugalde MD [address] [place] [address], [place], [address], [facility] 06/07/2017 14:40:34 8 Videostrobe 1 meredith Ugalde MD [address] [place] [address], [place], [address], [facility] 06/07/2017 14:41:43 Imaging [...] Updated DateTime 06/07/2017 170.18 cm 23.5 kg/m2 89192.86 g Kaylan Freed [facility] 06/07/2017 14:10:36 Social History Question Answer Notes LastModified by Organizat ion Details LastModified Time Tobacco Smoking Status Current Every Day Smoker Kaylan ma [place] - [facility] 06/07/2017 14:10:59 Alcohol Use [...] SNOMED-CT Code Diagnosis ICD10 Code Diagnosis Note 23712 Brea Ugalde MD [facility] [address] [place] [address] [place] [address] 06/07/2017 13:59:07 06/11/2017 14:50:19 Chronic fungal laryngitis 405622300 J37.0 Impacted c erumen in right ear 7314854274 959067 H61.21 18594 Brea Ugalde MD [facility] [address] [place] [address] [place] [address] 06/13/2017 13:00:30 06/14/2017 15:30:36 Chronic fungal laryngitis 238886430 J37.0 06921 Brea Ugalde MD [facility] [address] [place] [address] [place] [address] 06/28/2017 09:44:59 07/09/2017 16:07:25 Chronic fungal laryngitis 546486827 J37.0 Allergic r hinitis caused by pollen 32929928 J30.1 42982 Brea Ugalde MD [facility] [address] [place] [address] [place] [address] 07/15/2017 13:13:44 07/26/2017 10:44:01 Chronic fungal laryngitis 374417107 J37.0 Leukoplaki a of vocal cords 62100400 J38.3 90322 Brea Ugalde MD [facility] [address] [place] [address] 08/09/2017 10:15:39 08/15/2017 10:38:48 Chronic fungal laryngitis 083449829 J37.0 Leukoplaki a of vocal cords 38279305 J38.3 Health Concerns Section Related Observation LastModified by Organization Detai ls LastModified Time None Recorded Concern Status LastModified by Organization Details LastModified Time None Recorded Advance Directives Directive None Recorded Payers Insurance Date Sequence Insurance Name Policy Number Policy Roth Covered Member ID Roth Member ID Guarantor Name 08/08/2017 1 [facility] INDEMNITY PLAN - [facility] [id number] 5 Nathalie Huggins'Brien-Nura white [id number] Nathalie De Anda Notes Date Note Type Note Provider Name [...] started smoking again. Brea Ugalde MD [address] [facility] [address] , [place], [address], [facility] 06/07/2017 15:42:10 06/13/2017 text/html [...] started smoking again. Brea Ugalde MD [address] [facility], [place], [address], [facility] 06/14/2017 13:01:29 06/28/2017 [...] started smoking again. Brea Ugalde MD [address] [facility], [place], [address], [facility] 06/28/2017 17:23:44 07/15/2017 [...] started smoking again. Brea Ugalde MD [address] [facility] [address], [place], [address], [facility] 07/16/2017 09:08:03 08/09/2017 text/html [...] started smoking again. Brea Ugalde MD [address] [facility] [address], [place], [address], [place] [facility] 08/09/2017 10:30:17 OBGyn Episode No OBEpisode recorded.
== END 2024-09-14 11:09 | disposition home or self-care (01) ==
LOC: HO.BBR 11:08
PROVIDERS: PCP Radiology Diagnostic Radiology; Visit Provider Internal Medicine Hematology & Oncology
DX: D75.1 Secondary polycythemia (principal)
CPT/HCPCS: 85018

== ENCOUNTER 2024-11-02 11:00 | Outpatient (REF) | payer OTHER, SELFPAY ==
--- OUTSIDE RECORDS SUMMARY | 2024-11-02 12:13 | XMS_ITS | Encounter Summary ---
Author Organization [facility] Address [address] [facility] [address] [place] [address] Phone Care Team Providers Care Intermediate Card Tender Name Role Phone Marylu Barnes MD Primary Care Provider [phone] Abiola Butt NP Primary Care Provider Marylu Barnes MD Unavailable Marylu Barnes MD Unavailable Marylu Barnes MD Unavailable [phone] Marylu Barnes MD Unavailable [phone] Marylu Barnes MD Unavailable Maik Cox DO Primary Care Provider Encounter Details Date Type Department Care Team (Late st Contact Info) Description 12/05/2018 Ancillary Orders [facility] at [address] [address] Marylu Barnes MD [facility] [place] [address] [email or web address] Social History Tobacco Use Types Packs/Day Years Used Date Smoking Tobacco: Every Day Cigarettes Smokeless Tobacco: Never Alcohol Use Standard Drinks/Week Comments Yes 5 (1 standard drink = 0.6 oz pur e alcohol) Comments Unknown Sex and Gender Information Value Date Recorded Sex Assigned at Female 11/24/2020 1:51 PM EDT Legal Sex Female 9:22 AM EDT Gender Identity Female 11/24/2020 1:51 PM EDT Sexual Orientation Straight 11/24/2020 1: 51 PM EDT documented as of this encounter Plan of Treatment Not on file documented as of this encounter Visit Diagnoses Not on filedocumented in this encounter Additional Health Concerns Infection Onset Date Last Indicated Resolved Time CoV-Risk 11/07/2022 11/07/2022 11/18/2022 1:21 AM EDT CoV-Risk 08/20/2024 08/20/2024 08/31/2024 1:21 AM EDT Assessment Noted Time PHQ-9 Depression Total Score: 18 016 2:38 PM EST PHQ-2 Depression Total Score: 0 12/26/19 17 3:40 PM EDT documented as of this encounter Care Teams Intermediate Card Tender Relationship Specialty Start Date End Date Marylu Barnes MD [address] [place] [address] [email or web address] PCP - General 04/10/13 11/22/20 Abiola Butt [facility] [place] [address] [email or web address] PCP - General Family Medicine 11/23/20 11/06/22 aMik Cox DO [address] [address] PCP - General Family Medicine 11/07/22 Marylu Barnes MD [address] [place] [address] [email or web address] 11/23/20 Marylu Barnes MD [address] [place] [address] [email or web address] Partners Attributed Provider 05/22/15 01/17/19 Marylu Barnes MD [address] [place] [address] [email or web address] Insurance Assigned Provider 12/22/16 10/22/19 Marylu Barnes MD [address] [place] [address] [email or web address] Attributed Provider 04/17/19 12/24/20 Marylu Barnes MD [address] [place] [address] [email or web address] Insurance Assigned Provider 01/23/20 10/22/20 documented as of this encounter Additional Source Comments The information contained in this document represents components of the legal health record. It is not the complete legal health record.[facility]
== END 2024-11-02 11:01 | disposition home or self-care (01) ==
LOC: HO.BBR 11:00
PROVIDERS: PCP Radiology Diagnostic Radiology; Visit Provider Internal Medicine Hematology & Oncology
DX: D75.1 Secondary polycythemia (principal)
CPT/HCPCS: 85018

== ENCOUNTER 2025-01-25 10:01 | Outpatient (REF) | payer OTHER, SELFPAY ==
--- OUTSIDE RECORDS SUMMARY | 2025-01-25 11:33 | XMS_ITS | Encounter Summary ---
Author Organization [facility] Address [address] [place] [address] Phone Care Team Providers Care Md Physician Dermatologist Name Role Phone Marylu Barnes MD Primary Care Provider Abiola Butt NP Primary Care Provider Marylu Barnes MD Unavailable Marylu Barnes MD Unavailable Marylu Barnes MD Unavailable Marylu Barnes MD Unavailable Marylu Barnes MD Unavailable Maik Cox DO Primary Care Provider Encounter Details Date Type Department Care Team (Late st Contact Info) Description 01/08/2019 Procedure Pass [facility] [address] [place] [address] Social History Tobacco Use Types Packs/Day Years Used Date Smoking Tobacco: Every Day Cigarettes Smokeless Tobacco: Never Alcohol Use Standard Drinks/Week Comments Yes 5 (1 standard drink = 0.6 oz pur e alcohol) socially Comments Unknown Sex and Gender Information Value [...] documented as of this encounter Care Teams Md Physician Dermatologist Relationship Specialty Start Date End Date Marylu Barnes MD [address] [place] [phone] [email or web address] PCP - General 04/10/13 11/22/20 Abiola Butt NP [address] [place] [address] [email or web address] PCP - General Family Medicine 11/23/20 11/06/22 Maik Cox DO [address] [id number] PCP - General Family Medicine 11/07/22 Marylu Barnes MD [address] [place] [phone] [email or web address] 11/23/20 Marylu Barnes MD [address] [place] [phone] [email or web address] Attributed Provider 05/22/15 01/17/19 Marylu Barnes MD [address] [place] [phone] [email or web address] Insurance Assigned Provider 12/22/16 10/22/19 Marylu Barnes MD [address] [place] [phone] [email or web address] Attributed Provider 04/17/19 12/24/20 Marylu Barnes MD [address] [place] [phone] [email or web address] Insurance Assigned Provider 01/23/20 10/22/20 documented as of this encounter Additional Source Comments The information contained in this document represents components of the legal health record. It is not the complete legal health record.[email or web address]
--- OUTSIDE RECORDS SUMMARY | 2025-01-25 11:33 | XMS_ITS | Clinical Summary ---
Author Organization Located Within [facility] Address [address] [place] [address] Phone Care Team Providers Care Pulp Cooker Name Role Phone Marylu Barnes MD Unavailable [phone] Maik Cox DO Primary Care Provider Allergies Active Allergy Reactions Criticality Noted Date Comments Perfume 09/24/2017 Pollen Extracts 09/24/2017 Medications fluticasone propionate (FLONASE) 50 mcg/actuation nasal spray 50 sprays by Nasal route daily. Reported on 05/28/2016 16 g 11 7 Active Additional Information Patient not taking.Reported on 04/20/2019 cetirizine (ZYRTEC) 10 MG tablet Take 1 tablet (10 mg total) by mouth daily. Reported on 05/28/2016 90 tablet 11 8 Active Additional Information Patient not taking.Reported on 01/08/2019 therapeutic multivitamin tablet Take 1 tablet by mouth daily. Active ipratropium-albu terol (DUONEB) 0.5-2.5 mg/3 mL nebulizer solution Take 3 mL by nebulization 4 (four) times a day as needed for wheezing. 90 mL 3 0 Active buPROPion (WELLBUTRIN SR) 200 MG SR 12 hr tablet Take 1 tablet (200 mg total) by mouth 2 (two) times a day. 180 tablet 11 0 Active umeclidinium (INCRUSE ELLIPTA) 62.5 mcg/actuation inhalation INHALE 1 PUFF BY MOUTH EVERY DAY 3 Inhaler 1 0 Active levothyroxine (SYNTHROID, LEVOTHROID) 100 MCG tablet TAKE 1 TABLET BY MOUTH EVERY DAY 90 tablet 11 0 Active VENTOLIN HFA 90 mcg/actuation inhaler INHALE 2 PUFFS INTO THE LUNGS EVERY 4 (FOUR) HOURS NEEDED FOR WHEEZING *NOT COVERED* 54 Inhaler 1 Active azelastine (ASTEPRO) 205.5 mcg (0.15 %) [place] SPRAY 1 SPRAY INTO EACH NOSTRIL TWICE A DAY 30 mL 2 1 Active albuterol 90 mcg/actuation inhaler Inhale into the lungs every 6 (six) hours as needed for wheezing. Active levothyroxine (SYNTHROID, LEVOTHROID) 100 MCG tablet Take 100 mcg by mouth every morning. Active fluticasone propionate (FLOVENT DISKUS) 100 mcg/actuation DsDv Inhale 100 mcg into the lungs 2 (two) times a day. Active rosuvastatin (CRESTOR) 10 MG tablet TAKE 1 TABLET (10 MG TOTAL) BY MOUTH DAILY. 90 tablet 3 2 Active Active Problems Problem Noted Date Diagnosed Date Abnormal cervical Papanicolaou smear 04/21/2020 Overview (04/21/2020): mFOCUS problem [080853] Immunity status testing 08/19/2017 Need for hepatitis vaccination 08/19/2017 Depression 01/09/2017 Anxiety 04/03/2016 Uncoded CELL [phone] 07/19/2008 Overview (05/08/2014): CELL [phone] Asthma 04/22/2007 Overview (05/08/2014): Asthma Hyperlipidemia 01/18/2007 Overview (05/08/2014): Hyperlipidemia; mixed Hypothyroidism 01/18/2007 Overview (05/08/2014): Hypothyroidism Obesity 01/18/2007 Overview (05/08/2014): Obesity Smoker 01/18/2007 Overview (05/08/2014): Smoking Immunizations Immunization Administration Dates Next Due COVID-19 (Pre-01/07) Pfizer Vaccine, mRNA, PF 03/09/2021 [id number] FORMULATION 02/01/2009 Hepatitis B Adult 06/03/2018,09/20/2017,08/23/19 18 INFLUENZA, SPLIT VIRUS, TRIVALENT PF 03/01/2016, 01/31/2012 Influenza Quadrivalent Preservative Free IM 05/2019,04/12/2014,02/05/2013 Influenza, Unspecified Formulation 03/09/2021, Tdap 08/19/2017 Family History Medical History Relation Comments COPD Father Chronic obstruct jovanny lung disease Colon cancer Father colon cancer Depression Father depression Uncoded Family History Father anxiety Lung cancer Mother lung cancer Peripheral vascular disease Mother Jessica pheral vascular disease Uncoded Family History Mother substance abuse Graves' disease Sister Graves' disease Anxiety disorder Son Depression Son Relation Status Comments Father Mother Sister Son Social History Tobacco Use Types Packs/Day Years Used Date Smoking Tobacco: Every Day Cigarettes 1 48.8 Started: 04/20/1976 Smokeless Tobacco: Never Tobacco Cessation:Ready to Q uit: Yes; Counseling Given: Yes Alcohol Use Standard Drinks/Week Comments Yes 5 (1 standard drink = 0.6 oz pur e alcohol) Occasional Education Answer Date Recorded Are you interested in more education? Not on nevaeh e 07/14/2022 Are you concerned about learning? Not on file 07/14/2022 No 07/14/2022 No 07/14/2022 Digital Access Answer Date Recorded No 08/11/2022 No 08/11/2022 Reliable internet access at home? Not on file 08/11/2022 Device with a working camera? Not on file Intimate Partner Violence Answer Date R ecorded Are you denied basic needs s uch as food, clothing, or medical care? No 08/20/2024 In the past 12 months have y ou been in a relationship with a person who hurts, threatens, or tries to control you? No 08/20/2024 Are you denied basic needs s uch as food, clothing, or medical care? No 08/20/2024 In the past 12 months have y ou been in a relationship with a person who hurts, threatens, or tries to control you? No 08/20/2024 Comments No Sex and Gender Information Value Date Recorded Sex Assigned at Female 11/24/2020 1:51 PM EDT Legal Sex Female 9:22 AM EDT Gender Identity Female 11/24/2020 1:51 PM EDT Sexual Orientation Straight 11/24/2020 1: 51 PM EDT Last Filed Vital Signs Vital Sign Reading Time Taken Comments Blood Pressure 113/79 08/20/2024 1:00 AM EDT Pulse 71 08/20/2024 3:04 AM EDT Temperature 36.4 C (97.6 F) 08/19/2024 11:50 PM EDT Respiratory Rate 18 08/20/2024 3:04 AM EDT Oxygen Saturation 95% 08/20/2024 3:04 AM EDT Inhaled Oxygen Concentration - - Weight 103.2 kg (227 lb 9.6 oz) 021 10:15 AM EDT Height 169.5 cm (5' 6.73 ) 11/23/2020 1 0:15 AM EDT Body Mass Index 35.93 11/23/2020 10:15 AM EDT Plan of Treatment Health Maintenance Due Date Last Done Comments COLOGUARD 10/10/2007 FIT TEST 10/10/2007 FOBT 10/10/2007 SIGMOIDOSCOPY 10/10/2007 VIRTUAL COLONOSCOPY 10/10/2007 RSV VACCINE (1 - Risk 50-74 years 1-dose series) 2012 ZOSTER VACCINES (1 of 2) 2012 DEPRESSION SCREENING 12/25/2017 12/25/2016, 03/01/20 16 LUNG CANCER SCREENING (LDCT Only) 04/20/2020 04/20/2019, 09/08/2014, 08/27/2013, Additional history exists TSH LEVEL 04/20/2020 04/20/2019, 06/0 06/2017, 12/25/2016, Additional history exists MAMMOGRAM 12/06/2020 12/06/2018, 04/2 10/2015, 02/19/2013, Additional history exists COLONOSCOPY 01/09/2024 01/08/2019, 01/16, 01/20/2010, Additional history exists COLORECTAL CANCER SCREENING 01/09/2024 LIPID PANEL 04/20/2024 04/20/2019, 02/16, 03/15/2016, Additional history exists PAP SMEAR 09/27/2024 09/28/2019, 09/15, 04/20/2019, Additional history exists INFLUENZA VACCINE (#1) 2024 , 02/24/2020, 04/20/2019, Additional history exists COVID-19 VACCINE (3 - season) 2024 03/09/2021, 06/17/2020 PNEUMOCOCCAL VACCINES (50+ years) (3 of 3 - PCV20 or PCV21) 02/23/2025 02/24/2020, 02/24/2020, 02/22/2020 SMOKING Hx and SMOKELESS TOBACCO SCREENING 08/20/2025 08/20/2024 Adult Td,Tdap Booster 08/20/2027 08/19/2017 HEPATITIS C SCREENING Completed 04/20/2019, 018 HIV ONE-TIME SCREENING (18-65 YEARS) Completed 04/20/2019 HEPATITIS A VACCINES Aged Out No long er eligible based on patient's age to complete this topic HIB VACCINES Aged Out No longer eligi ble based on patient's age to complete this topic IPV VACCINES Aged Out No longer eligi ble based on patient's age to complete this topic MENINGOCOCCAL VACCINES (ACWY) Aged Out No longer eligible based on patient's age to complete this topic MENINGOCOCCAL VACCINES (B) Aged Out N o longer eligible based on patient's age to complete this topic Medical Devices Implanted Type Area Intern Product Marketing Manager Device Identifier Shelf Expiration Date Model / Serial / Lot Dental Implants Procedures Procedure Name Priority Date/Time Associated Diagnosis Comments PAP TEST Routine 09/28/2019 12:[address] CHEST LUNG CANCER SCREENING INITIAL Routine 04/20/2019 3:11 PM EST Encounter for screening for lung cancer LIPID PANEL Routine 04/20/2019 12:57 PM EST Hyperlipidemia, unspecified hyperlipidemia type HEPATITIS C ANTIBODY, QUALITATIVE Routine 04/20/2019 12:57 PM EST Encounter for hepatitis C screening test for low risk patient THYROID STIMULATING HORMONE (TSH) Routine 04/20/2019 12:57 PM EST Hypothyroidism, unspecified type ENDOSCOPY, COLON 01/08/2019 8:38 AM EDT BI MAMMOGRAM SCREENING WITH TOMOSYNTHESIS WITH CAD (BILATERAL) Routine 12/06/2018 10:09 AM EDT Screening mammogram, encounter for from Last 3 Months or Most Recently Relevant to Health Maintenance Results * (ABNORMAL) Pap Smear (09/28/2019 12:00 AM EDT) 09/28/2019 09/28/2019 [facility] - 10/20/2019 11:40 AM EDT CASE: [id number] PATIENT: JW KIRK Global Cto: NICKIE Swain(ASCP) Specimen(s) Received THINPREP PAP TEST, CERVICAL [facility] [place] Department of Pathology [address] [place] [address] FINAL DIAGNOSIS SPECIMEN ADEQUACY: Satisfactory for evaluation; transformation zone present. INTERPRETATION: EPITHELIAL CELL ABNORMALITY - SQUAMOUS. Low grade squamous intraepithelial lesion. Clinical History Post-menopausal; Prior Pap LSIL Last Menstrual Period Approximate Date:Apr 2018 Materials Total ThinPrep slides: 1 Gynecological cytology is a screening test subject to both false negative and false positive results and is most reliable when a satisfactory sample is obtained on a regular basis. Results must be interpreted in the context of current and previous clinical information. Final Diagnosis by Humphrey Duong M.D., Electronically signed on Wednesday October 16, 2019 at 01:54:43PM ADDENDUM HPV TEST: Positive for messenger RNA (mRNA) of the high-risk human papillomavirus (HPV) types 16, 18, 31, 33, 35, 39, 45, 51, 52, 56, 58, 59, 66, and [address] [employer] HPV assay[address] [facility] [place] [address] CLIA License #: [id number] Marketing Strategist: Bucky Pemberton MD HPV Addendum by Malcom YODER (ASCP), Electronically signed on Sunday October 20, 2019 at 11:39:47AM Final Diagnosis by Humphrey Duong M.D., on Wednesday October 16, 2019 at 01:54:43PM us Ivory Ivey MD CYTOLOGY ORDERABLES Edited Resu lt - Final [facility] [address] [place] [address] * CT CHEST LUNG CANCER SCREENING INITIAL (04/20/2019 3:11 PM EST) Anatomical Region Laterality Modality Chest Computed Tomogra phy 04/20/2019 5:07 PM EST Impressions 04/20/2019 5:12 PM EST 1. Stable lung nodule within the right upper lobe as described above 5 years. This likely represents a noncalcified granuloma or intrapulmonary lymph node. 2. Severe emphysema. Lung RADS Category: 1 Significant Other Finding: Yes Prior Lung Cancer: No Lung RADS Descriptor: 1 Negative Detail: No nodules and definitely benign nodules. Management: Continue annual Lung Cancer Screening CT (within guidelines for age/smoking status). RECOMMENDATION: Continue annual lung cancer screening CT, next examination due after 04/20/2020. Please contact Dr. Jessica Darby by e-mail at [email or web address] or [phone] for further information and decision support for lung cancer screening and smoking cessation. Narrative 04/20/2019 5:12 PM EST Reason for exam (per EHR order): * LUNG CANCER SCREENING Additional clinical information obtained from the risk assessment questionnaire: Asymptomatic; history of smoking >= 30 pack-years, smoking status patient is a current smoker. Patient began smoking at age 18 and is still smoking at age 58 she states she smokes 1 pack per day for a 40 pack-year smoking history. TECHNIQUE: Multiplanar CT imaging of the chest at reduced radiation dose with inclusion of axial maximum intensity projection images (MIPs). Intravenous contrast: None. COMPARISON: CT scan the chest dated 09/08/2014. FINDINGS: Lungs: A 5.2 mm nodule is seen within the right upper lobe (5:148). It is stable when compared with the study of 2014. No new lung nodules are seen. Diffuse severe emphysema is identified as well as bronchial wall thickening. The abnormality seems to be largely lower lobe predominant. Pleura: No pleural effusion. Lymph Nodes: No enlarged supraclavicular, axillary, mediastinal or hilar lymph nodes. Mediastinum: Heart size is normal. No pericardial effusion. Coronary Artery Calcifications: Absent. Chest Wall / Breasts: No mass in visualized field of view. Upper Abdomen: This study was performed without contrast and with lower than standard dose, reducing the sensitivity for detection of small lesions in the upper abdomen. The visualized portion of the abdomen is normal. Musculoskeletal: Degenerative changes of the thoracic spine are noted. Procedure Note Carrington Newsome MD - 04/20/2019 Reason for exam (per EHR order): * LUNG CANCER SCREENING Additional clinical information obtained from the risk assessmentquestionnaire: Asymptomatic; history of smoking >= 30 pack-years, smoking status patientis a current smoker. Patient began smoking at age 18 and is still smoking atage 58 she states she smokes 1 pack per day for a 40 pack-year smoking history. TECHNIQUE: Multiplanar CT imaging of the chest at reduced radiation dose withinclusion of axial maximum intensity projection images (MIPs). Intravenous contrast: None. COMPARISON: CT scan the chest dated 09/08/2014. FINDINGS: Lungs: A 5.2 mm nodule is seen within the right upper lobe (5:148). It isstable when compared with the study of 2014. No new lung nodules are seen. Diffuse severe emphysema is identified as well as bronchial wallthickening. The abnormality seems to be largely lower lobe predominant. Pleura: No pleural effusion. Lymph Nodes: No enlarged supraclavicular, axillary, mediastinal or hilarlymph nodes. Mediastinum: Heart size is normal. No pericardial effusion. Coronary Artery Calcifications: Absent. Chest Wall / Breasts: No mass in visualized field of view. Upper Abdomen: This study was performed without contrast and with lowerthan standard dose, reducing the sensitivity for detection of small lesions inthe upper abdomen. The visualized portion of the abdomen is normal. Musculoskeletal: Degenerative changes of the thoracic spine are noted. IMPRESSION: 1. Stable lung nodule within the right upper lobe as described above 5years. This likely represents a noncalcified granuloma or intrapulmonary lymphnode. 2. Severe emphysema. Lung RADS Category: 1 Significant Other Finding: Yes Prior LungCancer: No Lung RADS Descriptor: 1 Negative Detail: No nodules and definitely benign nodules. Management: Continue annual Lung Cancer Screening CT (within guidelinesfor age/smoking status). RECOMMENDATION: Continue annual lung cancer screening CT, next examinationdue after 04/20/2020. Please contact Dr. Jessica Darby by e-mail at [email or web address] [phone] for further information and decision support for lungcancer screening and smoking cessation. us Marylu Barnes MD IMG CT CHEST Final Resu lt * Hepatitis C antibody, qualitative (04/20/2019 12:57 PM EST) Pathologist [facility] [place] HCV ANTIBODY Nonreactive Nonreactive [facility] Blood 04/20/2019 12:5 7 PM EST 04/20/2019 7:09 PM EST Marylu Barnes MD LAB BLOOD BKR ORDERABLES F inal Result Performing Organization Address City/[facility]/ZIP Co de Phone Number [address] [address] * TSH (04/20/2019 12:57 PM EST) Pathologist [facility] [place] TSH 3.98 0.27 - 4.20 uIU/mL [facility] Blood 04/20/2019 12:5 7 PM EST 04/20/2019 7:09 PM EST Marylu Barnes MD LAB BLOOD BKR ORDERABLES F inal Result Performing Organization Address City/[facility]/ZIP Co de Phone Number [address] [address] * Lipid panel (04/20/2019 12:57 PM EST) Pathologist [facility] [place] HDL 53 40 - 60 mg/dL [facility] CHOLESTEROL 165 0 - 199 mg/dL [facility] Comment:DESIRABLE: <200 TRIGLYCERIDES 95 40 - 150 mg/dL [facility] LDL 93 0 - 129 mg/dL [facility] Comment: < 100 Optimal, if known or suspected vascular disease is present < 130 Near optimal, if risk factors for vascular disease are present Guidelines set by National Cholesterol Education Program (Adult Treatment Panel III) CARDIAC RISK RATIO 3.1 0.0 - 4.0 [facility] Blood 04/20/2019 12:5 7 PM EST 04/20/2019 7:09 PM EST us Marylu Barnes MD LAB BLOOD BKR ORDERABLES F inal Result [facility] [address] [place] [address] * ENDOSCOPY, COLON (01/08/2019 8:38 AM EDT) Narrative Transcriptions Rahul Perkins MD - 01/08/2019 8:38 AM EDT [facility] Patient Name: Jw Ford Rajni Procedure Date: 01/08/2019 8:38 AM Date of : 1960 Procedure: Colonoscopy Indications: Screening in patient at increased risk: Colorectalcancer in father 60 or older Providers: Rahul Perkins MDDari RN Referring MD: Marylu Barnes MD (Referring MD) Medicines: Midazolam 6 mg IV, Fentanyl 100 micrograms IV Complications: No immediate complications. Procedure: Pre-Anesthesia Assessment: - Prior to the procedure, a History and Physical was performed, and patient medications, allergies and sensitivities were reviewed. The patient's tolerance of previous anesthesia was reviewed. - The risks and benefits of the procedure and thesedation options and risks were discussed with the patient. All questions were answered and informed consent wasobtained. - Patient identification and proposed procedure were verified prior to the procedure by the physician andthe nurse. The procedure was verified in the procedureroom. - ASA Grade Assessment: II - A patient with mildsystemic disease. - After reviewing the risks and benefits, the patientwas deemed in satisfactory condition to undergo theprocedure. - The anesthesia plan was to use moderate sedation/analgesia (conscious sedation). After obtaining informed consent, the colonoscope was passed under direct vision. Throughout the procedure,the patient's blood pressure, pulse, and oxygen saturations were monitored continuously. The Colonoscope was introduced through the anus and advanced to the thececum, identified by appendiceal orifice and ileocecal valve.The colonoscopy was performed without difficulty. Thepatient tolerated the procedure well. The quality of the bowel preparation was excellent. The bowel preparation usedwas Miralax. Findings: The perianal and digital rectal examinations were normal. Multiple small and large-mouthed diverticula were found in thesigmoid colon and descending colon. Non-bleeding internal hemorrhoids were found during retroflexion. The hemorrhoids were small and Grade I (internal hemorrhoids that do not prolapse). The exam was otherwise normal throughout the examined colon. Therewere no polyps or inflammatory changes. Moderate Sedation: Moderate (conscious) sedation was personally administered by the endoscopist. The following parameters were monitored: oxygensaturation, heart rate, blood pressure, and response to care. Total physician intraservice time was 24 minutes. Impression: - Diverticulosis in the sigmoid colon and in the descending colon. - Non-bleeding internal hemorrhoids. - The exam was otherwise normal to the cecum. - No specimens collected. Recommendation: - Discharge patient to home (ambulatory). - Return to primary care physician PRN. - Repeat colonoscopy in 5 years for screeningpurposes. Procedure Code(s): --- Professional --- G0105, Colorectal cancer screening; colonoscopy on individual at high risk 42005, Moderate sedation; each additional 15 minutes intraservice time G0500, Moderate sedation services provided by the same physician or other qualified health urgent care nurse practitioner performing a gastrointestinal endoscopic service that sedation supports, requiring the presence of an independent trained observer to assist in themonitoring of the patient's level of consciousness andphysiological status; initial 15 minutes of intra-service time;patient age 5 years or older (additional time may be reportedwith [id number], as appropriate) Diagnosis Code(s): --- Professional --- Z80.0, Family history of malignant neoplasm ofdigestive organs CPT copyright 2018 [employer]. All rights reserved. Attending Participation: I personally performed the entire procedure. Rahul Perkins MD 01/08/2019 9:22:26 AM This report has been electronically signed. I was present during the entire viewing portion of this exam. Number of Addenda: 0 Note Initiated On: 01/08/2019 8:38 AM Marylu Barnes MD GI PROCEDURE ORDERABLES Fi nal Result * BI MAMMOGRAM SCREENING WITH TOMOSYNTHESIS WITH CAD (BILATERAL) (12/06/2018 10:09 AM EDT) Anatomical Region Laterality Modality Breast Left, Breast Right, Breast Bilateral Bila teral Mammography 12/06/2018 4:26 PM EDT Impressions 12/06/2018 4:30 PM EDT No mammographic evidence of malignancy. Recommend routine screening. The patient was sent a letter with the results of the exam and follow-up recommendation. OVERALL ASSESSMENT -- BI-RADS 1 NEGATIVE Narrative 12/06/2018 4:30 PM EDT Reason for exam: Screening. No new breast complaints. TECHNIQUE: Digital Mammography and tomosynthesis were used to obtain images. Computer Aided Detection was used to aid in interpretation and volumetric breast density assessment may have been used as an aid in evaluating breast density. COMPARISON: Comparison is made with relevant prior imaging in PACS. Breast Composition: almost entirely fatty. FINDINGS: Bilateral Breasts: No significant masses, suspicious calcifications, or other abnormalities are seen. Procedure Note Daquan Johnson MD - 12/06/2018 Reason for exam: Screening. No new breast complaints. TECHNIQUE: Digital Mammography and tomosynthesis were used to obtain images. ComputerAided Detection was used to aid in interpretation and volumetric breastdensity assessment may have been used as an aid in evaluating breast density. COMPARISON: Comparison is made with relevant prior imaging in PACS. Breast Composition: almost entirely fatty. FINDINGS: Bilateral Breasts: No significant masses, suspicious calcifications, or other abnormalitiesare seen. IMPRESSION: No mammographic evidence of malignancy. Recommend routine screening. The patient was sent a letter with the results of the exam and follow-up recommendation. OVERALL ASSESSMENT -- BI-RADS 1 NEGATIVE Marylu Barnes MD IMG MG EXAMS Final Resu lt from Last 3 Months or Most Recently Relevant to Health Maintenance Insurance [employer] TOTAL CHOICE INDEMNITY [employer] TOTAL CHOICE INDEMNITY [facility] TOTAL CHOICE INDEMNITY [facility] TOTAL CHOICE INDEMNITY [facility] TOTAL CHOICE IN[facility]ITY [facility] [employer]OTAL [facility] IN[facility]MNITY [facility] TOTAL CHOICE INDEMNITY Advance Directives For more information, please contact: [phone] (9AM - 5PM [place], Saturday-Saturday) Documents on File Type Date Recorded Patient District Recruiter Expl anation Healthcare Proxy 09/25/2017 2:09 PM Care Teams Pulp Cooker Relationship Specialty Start Date End Date Maik Cox DO [address] [address] PCP - General Family Medicine 11/07/22 Marylu Barnes MD [address] [place] [id number] [email or web address] 11/23/20 Additional Source Comments The information contained in this document represents components of the legal health record. It is not the complete legal health record.Located Within [facility]
--- OUTSIDE RECORDS SUMMARY | 2025-01-25 11:33 | XMS_ITS | Encounter Summary ---
Author Organization [facility] Address [address] [place] [address] Phone Care Team Providers Care Sr Vice President Name Role Phone Marylu Barnes MD Primary Care Provider Abiola Butt NP Primary Care Provider Marylu Barnes MD Unavailable Marylu Barnes MD Unavailable Marylu Barnes MD Unavailable Marylu Barnes MD Unavailable Marylu Barnes MD Unavailable Maik Cox DO Primary Care Provider Encounter Details Date Type Department Care Team (Late st Contact Info) Description 09/24/2017 Procedure Pass [facility] MAIN PERIOP DEPT [address] [place] [address] [phone] Social History Tobacco Use Types Packs/Day Years [...] documented as of this encounter Care Teams Sr Vice President Relationship Specialty Start Date End Date Marylu Barnes MD [address] [place] [address] [email or web address] PCP - General 04/10/13 11/22/20 Abiola Butt [facility] [place] [address] [email or web address] PCP - General Family Medicine 11/23/20 11/06/22 Maik Cox DO [address] [address] PCP - General Family Medicine 11/07/22 Marylu Barnes MD [address] [place] [address] [email or web address] 11/23/20 Marylu Barnes MD [address] [place] [address] [email or web address] Attributed Provider 05/22/15 01/17/19 Marylu Barnes MD [address] [place] [address] [email or web address] Assigned Provider 12/22/16 10/22/19 Marylu Barnes MD [address] [place] [address] [email or web address] Attributed Provider 04/17/19 12/24/20 Marylu Barnes MD [address] [place] [address] [email or web address] Assigned Provider 01/23/20 10/22/20 documented as of this encounter Additional Source Comments The information contained in this document represents components of the legal health record. It is not the complete legal health record.[facility]
--- OUTSIDE RECORDS SUMMARY | 2025-01-25 11:33 | XMS_ITS | Encounter Summary ---
Author Organization [facility] Address [address] [place] [address] Phone Care Team Providers Care Vinyl Flooring Installer Name Role Phone Marylu Barnes MD Primary Care Provider [phone] Abiola Butt NP Primary Care Provider Marylu Barnes MD Unavailable Marylu Barnes MD Unavailable Marylu Barnes MD Unavailable [phone] Marylu Barnes MD Unavailable [phone] Marylu Barnes MD Unavailable Maik Cox DO Primary Care Provider Encounter Details Date Type Department Care Team (Late st Contact Info) Description 12/05/2018 Ancillary Orders [facility] [address] [address] Marylu Barnes MD [facility] [place] [address] [email or web address] Social History Tobacco Use Types Packs/Day [...] documented as of this encounter Care Teams Vinyl Flooring Installer Relationship Specialty Start Date End Date Marylu Barnes MD [address] [place] [address] [email or web address] PCP - General 04/10/13 11/22/20 Abiola Butt NP [facility] [place] [address] [email or web address] PCP - General Family Medicine 11/23/20 11/06/22 Maik Cox DO [address] [address] PCP - General Family Medicine 11/07/22 Marylu Barnes MD [address] [place] [address] [email or web address] 11/23/20 Marylu Barnes MD [address] [place] [address] [email or web address] Attributed Provider 05/22/15 01/17/19 Marylu Barnes MD [address] [place] [address] [email or web address] Assigned Provider 12/22/16 10/22/19 Marylu Barnes MD [address] [place] [address] [email or web address] Attributed Provider 04/17/19 12/24/20 Marylu Barnes MD [address] [place] [address] [email or web address] Assigned Provider 01/23/20 10/22/20 documented as of this encounter Additional Source Comments The information contained in this document represents components of the legal health record. It is not the complete legal health record.[facility]
--- OUTSIDE RECORDS SUMMARY | 2025-01-25 11:33 | XMS_ITS | Encounter Summary ---
Author Organization [facility] Address [address] [place] [address] Phone Care Team Providers Care Varnisher Name Role Phone Marylu Barnes MD Primary Care Provider [phone] Abiola Butt NP Primary Care Provider Marylu Barnes MD Unavailable Marylu Barnes MD Unavailable Marylu Barnes MD Unavailable Marylu Barnes MD Unavailable Marylu Barnes MD Unavailable Maik Cox DO Primary Care Provider Encounter Details Date Type Department Care Team (Late st Contact Info) Description 12/06/2018 Ancillary Orders [facility] [address] [address] Marylu Barnes MD [address] [place] [address] [email or web address] Screening mammogram, encounter for Social History Tobacco Use Types Packs/Day Years [...] documented as of this encounter Visit Diagnoses Diagnosis Screening mammogram, encounter for documented in this encounter Additional Health Concerns Infection Onset Date Last Indicated Resolved Time CoV-Risk 11/07/2022 11/07/2022 11/18/2022 1:21 AM EDT CoV-Risk 08/20/2024 08/20/2024 08/31/2024 1:21 AM EDT Assessment Noted Time PHQ-9 Depression Total Score: 18 016 2:38 PM EST PHQ-2 Depression Total Score: 0 12/26/19 17 3:40 PM EDT documented as of this encounter Care Teams Varnisher Relationship Specialty Start Date End Date Marylu Barnes MD [address] [place] [address] [email or web address] PCP - General 04/10/13 11/22/20 Abiola Butt NP [address] [place] [address] [email or web address] PCP - General Family Medicine 11/23/20 11/06/22 Maik Cox DO [address] [address] PCP - General Family Medicine 11/07/22 Marylu Barnes MD [address] [place] [address] [email or web address] 11/23/20 Marylu Barnes MD [address] [place] [address] [email or web address] Attributed Provider 05/22/15 01/17/19 Marylu Barnes MD [address] [place] [address] [email or web address] Assigned Provider 12/22/16 10/22/19 Marylu Barnes MD [address] [place] [address] [email or web address] Attributed Provider 04/17/19 12/24/20 Marylu Barnes MD [address] [place] [address] [email or web address] Assigned Provider 01/23/20 10/22/20 documented as of this encounter Additional Source Comments The information contained in this document represents components of the legal health record. It is not the complete legal health record.[facility]
--- OUTSIDE RECORDS SUMMARY | 2025-01-25 11:33 | XMS_ITS | Encounter Summary ---
Author Organization [facility] Address [address] [facility] [address] [place] [address] Phone Care Team Providers Care Newspaper Distributor Supervisor Name Role Phone Marylu Barnes MD Primary Care Provider Abiola Butt NP Primary Care Provider Marylu Barnes MD Unavailable Marylu Barnes MD Unavailable [phone] Christiano Bradshaw MD, PhD Unavailable + Marylu Barnes MD Unavailable [phone] Marylu Barnes MD Unavailable [phone] Marylu Barnes MD Unavailable [phone] Maik Cox DO Primary Care Provider [phone] Encounter Details Date Type Department Care Team (Late st Contact Info) Description 02/22/2016 Transcribe Orders [facility] Echocardiography [address] [place] [address] Chayo Shahid [address] [place] [address] [email or web address] Social History Tobacco Use Types Packs/Day Years Used Date Smoking Tobacco: Former Comments Unknown Sex and Gender Information Value [...] 08/31/2024 1:21 AM EDT Assessment Noted Time PHQ-2 Depression Total Score: 2 02/22/20 16 10:45 AM EST documented as of this encounter Care Teams Newspaper Distributor Supervisor Relationship Specialty Start Date End Date Marylu Barnes MD [address] [place] [address] [email or web address] PCP - General 04/10/13 11/22/20 Abiola Butt NP [address] [place] [address] [email or web address] PCP - General Family Medicine 11/23/20 11/06/22 Maik Cox DO [address] [address] PCP - General Family Medicine 11/07/22 Marylu Barnes MD [address] [place] [address] [email or web address] 11/23/20 Marylu Barnes MD [address] [place] [address] [email or web address] Attributed Provider 05/22/15 01/17/19 Christiano Bradshaw MD, PhD [address] [place] [address] [email or web address] Assigned Provider 09/18/15 12/22/16 Marylu Barnes MD [address] [place] [address] [email or web address] Assigned Provider 12/22/16 10/22/19 Marylu Barnes MD [address] [place] [address] [email or web address] Attributed Provider 04/17/19 12/24/20 Marylu Barnes MD [address] [place] [address] [email or web address] Assigned Provider 01/23/20 10/22/20 documented as of this encounter Additional Source Comments The information contained in this document represents components of the legal health record. It is not the complete legal health record.[facility]
--- OUTSIDE RECORDS SUMMARY | 2025-01-25 11:33 | XMS_ITS | Encounter Summary ---
Author Organization [facility] Address [address] [place] [address] Phone Care Team Providers Care Packing Machine Tender Name Role Phone Marylu Barnes MD Primary Care Provider [phone] Abiola Butt NP Primary Care Provider Marylu Barnes MD Unavailable Marylu Barnes MD Unavailable Marylu Barnes MD Unavailable Marylu Barnes MD Unavailable Marylu Barnes MD Unavailable Maik Cox DO Primary Care Provider Encounter Details Date Type Department Care Team (Late st Contact Info) Description 12/05/2018 Ancillary Orders [facility] [address] [address] Marylu Barnes MD [address] [place] [address] [email or web address] Screening mammogram, encounter for Social History Tobacco [...] on file documented as of this encounter Results * BI MAMMOGRAM SCREENING WITH TOMOSYNTHESIS WITH [...] recommendation. OVERALL ASSESSMENT -- BI-RADS 1 NEGATIVE us Marylu Barnes MD IMG MG EXAMS Final Resu lt documented in this encounter Visit Diagnoses Diagnosis Screening mammogram, encounter for Screening mammogram, encounter for documented in this encounter Additional Health Concerns Infection Onset Date Last Indicated Resolved Time CoV-Risk 11/07/2022 11/07/2022 11/18/2022 1:21 AM EDT CoV-Risk 08/20/2024 08/20/2024 08/31/2024 1:21 AM EDT Assessment Noted Time PHQ-9 Depression Total Score: 18 03/01/ 016 2:38 PM EST PHQ-2 Depression Total Score: 0 12/26/19 17 3:40 PM EDT documented as of this encounter Care Teams Packing Machine Tender Relationship Specialty Start Date End Date Marylu Barnes MD [address] [place] [address] [email or web address] PCP - General 04/10/13 11/22/20 Abiola Butt NP [address] [place] [address] [email or web address] PCP - General Family Medicine 11/23/20 11/06/22 Maik Cox DO [address] [address] PCP - General Family Medicine 11/07/22 Marylu Barnes MD [address] [place] [address] [email or web address] 11/23/20 Marylu Barnes MD [address] [place] [address] [email or web address] Attributed Provider 05/22/15 01/17/19 Marylu Barnes MD [address] [place] [address] [email or web address] Assigned Provider 12/22/16 10/22/19 Marylu Barnes MD [address] [place] [address] [email or web address] Attributed Provider 04/17/19 12/24/20 Marylu Barnes MD [address] [place] [address] [email or web address] Assigned Provider 01/23/20 10/22/20 documented as of this encounter Additional Source Comments The information contained in this document represents components of the legal health record. It is not the complete legal health record.[facility]
--- OUTSIDE RECORDS SUMMARY | 2025-01-25 11:33 | XMS_ITS | Encounter Summary ---
Author Organization [facility] Address [address] [facility] [address] [place] [address] Phone Care Team Providers Care Electrologist Name Role Phone Marylu Barnes MD Unavailable [phone] Maik Cox DO Primary Care Provider + [phone] Encounter Details Date Type Department Care Team (Late st Contact Info) Description 11/07/2022 Procedure Pass [facility] - [facility] [address] [place] [address] Social History Tobacco Use Types Packs/Day Years Used Date Smoking Tobacco: Every Day Cigarettes 1 48.8 Started: 04/20/1976 Smokeless Tobacco: Never Alcohol Use Standard Drinks/Week [...] as food, clothing, or medical care? No 11/07/2022 In the past 12 months have y ou been in a relationship with a person who hurts, threatens, or tries to control you? No 11/07/2022 Are you denied basic needs s uch as food, clothing, or medical care? No 11/07/2022 In the past 12 months have y ou been in a relationship with a person who hurts, threatens, or tries to control you? No 11/07/2022 Comments No Sex and Gender Information Value Date Recorded Sex Assigned at Female 11/24/2020 1:51 PM EDT Legal Sex Female 9:22 AM EDT Gender Identity Female 11/24/2020 1:51 PM EDT Sexual Orientation Straight 11/24/2020 1: 51 PM EDT documented as of this encounter Functional Status * Calculated C-SSRS Risk Score (Lifetime/Recent) Answer Date of Assessment Author No Risk Indicated 11/07/2022 1:52 AM EDT Osiris Swain RN * [place] Suicide Severity Rating Scale (Screener/Recent Self-Report) Question Answer Date of Assessment Author 1. Wish to be (Past 1 Month) No 11/07/2022 1:52 AM EDT Cleveland Fritz RN 2. Non-Specific Active Suicidal Thoughts (Past 1 Month) No 11/07/2022 1:52 AM EDT Cleveland Fritz RN 6. Suicidal Behavior (Lifetime) No 11/07/2022 1:52 AM EDT Cleveland Fritz RN documented as of this encounter Plan of [...] documented as of this encounter Care Teams Electrologist Relationship Specialty Start Date End Date Maik Cox DO [address] [address] PCP - General Family Medicine 11/07/22 Marylu Barnes MD [address] [place] [address] [email or web address] 11/23/20 documented as of this encounter Additional Source Comments The information contained in this document represents components of the legal health record. It is not the complete legal health record.[facility]
--- OUTSIDE RECORDS SUMMARY | 2025-01-25 11:33 | XMS_ITS | Encounter Summary ---
Author Organization [facility] Address [address] [place] [address] Phone Care Team Providers Care Cloud Systems Architect Name Role Phone Marylu Barnes MD Primary Care Provider Abiola Butt NP Primary Care Provider Marylu Barnes MD Unavailable [phone] Marylu Barnes MD Unavailable [phone] Christiano Bradshaw MD, PhD Unavailable + Marylu Barnes MD Unavailable [phone] Marylu Barnes MD Unavailable [phone] Marylu Barnes MD Unavailable [phone] Maik Cox DO Primary Care Provider [phone] Encounter Details Date Type Department Care Team (Late st Contact Info) Description 07/16/2016 Procedure Pass [facility] [address] [place] [address] Social History Tobacco Use Types Packs/Day Years Used Date Smoking Tobacco: Former Alcohol Use Standard Drinks/Week Comments Yes 0 (1 standard drink = 0.6 oz pur [...] 2:38 PM EST PHQ-2 Depression Total Score: 2 03/30/19 17 10:00 AM EST documented as of this encounter Care Teams Cloud Systems Architect Relationship Specialty Start Date End Date Marylu Barnes MD [address] [place] [address] [email or web address] PCP - General 04/10/13 11/22/20 Abiola Butt NP [address] [place] [address] [email or web address] PCP - General Family Medicine 11/23/20 11/06/22 Maik Cox DO [address] [address] PCP - General Family Medicine 11/07/22 Marylu Barnes MD [address] [place] [address] [email or web address] 11/23/20 Marylu Barnes MD [address] [place] [address] [email or web address] Attributed Provider 05/22/15 01/17/19 Christiano Bradshaw MD, PhD [address] [place] [address] [email or web address] Assigned Provider 09/18/15 12/22/16 Marylu Barnes MD [address] [place] [address] [email or web address] Assigned Provider 12/22/16 10/22/19 Marylu Barnes MD [address] [place] [address] [email or web address] Attributed Provider 04/17/19 12/24/20 Marylu Barnes MD [address] [place] [address] [email or web address] Assigned Provider 01/23/20 10/22/20 documented as of this encounter Additional Source Comments The information contained in this document represents components of the legal health record. It is not the complete legal health record.[facility]
== END 2025-01-25 10:02 | disposition home or self-care (01) ==
LOC: HO.BBR 10:01
PROVIDERS: Visit Provider Internal Medicine Hematology & Oncology
DX: D75.1 Secondary polycythemia (principal)
CPT/HCPCS: 85018; 99195